=== PATIENT | female | born 1995 | race Hispanic/Latino ===

== ENCOUNTER 2021-03-15 18:06 | Emergency (ER) | payer OTHER ==
[~2021-03-15] VITALS: Ht 172.7 cm; Wt 83.9 kg
[2021-03-15 19:43] LABS: BASOPHILS % 0.5 % (0.0-1.0); EOSINOPHILS # (AUTO) 0.5 (0.0-0.4); EOSINOPHILS % 6.8 % (0.0-6.0); HEMATOCRIT 37.3 % (34.2-44.1); HEMOGLOBIN 12.2 g/dL (12.0-16.0); LYMPHOCYTES # (AUTO) 1.6 (1.0-3.2); LYMPHOCYTES % 20.3 % (18.0-39.1); MEAN CORPUSCULAR HEMOGLOBIN 30.9 pg (28-32); MEAN CORPUSCULAR HGB CONC 32.7 g/dL (31-35); MEAN CORPUSCULAR VOLUME 94.4 fL (81-99); MONOCYTES # (AUTO) 0.6 (0.2-0.8); MONOCYTES % 7.2 % (4.4-11.3); NEUTROPHILS # (AUTO) 5.1 (2.1-6.9); NEUTROPHILS % 64.8 % (38.7-80.0); PLATELET COUNT 419 x10e3/uL (140-360); RED BLOOD COUNT 3.95 x10e6/uL (3.6-5.1); RED CELL DISTRIBUTION WIDTH 12.6 % (11.7-14.4)
[2021-03-15 20:04] LABS: ALBUMIN/GLOBULIN RATIO 1.1 (0.8-2.0); ANION GAP 15.4 mmol/L (8-16); CALCIUM 9.5 mg/dL (8.4-10.2); POTASSIUM 5.4 mmol/L (3.5-5.1)
[2021-03-15] MEDS: DICYCLOMINE HCL 20 MG/2 ML VIAL IM ONE (20:21)
[2021-03-15] MEDS: ONDANSETRON HCL INJ 2MG/ML 2ML 2 MG/ML VIAL IV STA (20:21)
[2021-03-15 20:27] LABS: CREATININE, SERUM 0.71 mg/dL (0.57-1.11)
[2021-03-15 21:13] LABS: AMYLASE 48 U/L (25-125); LIPASE 14 U/L (8-78)
[2021-03-15 21:50] LABS: CLARITY,URINE CLEAR (CLEAR); COLOR,URINE YELLOW (YELLOW); KETONES,URINE NEGATIVE (NEGATIVE); LEUKOCYTE ESTERASE ,URINE NEGATIVE (NEGATIVE); NITRITE,URINE NEGATIVE (NEGATIVE); PROTEIN,URINE DIPSTICK NEGATIVE (NEGATIVE); URINE UROBILINOGEN 0.2 mg/dL (0.2 - 1)
[2021-03-15 22:06] LABS: EPITHELIAL CELLS,URINE FEW /LPF; WBC,URINE (MAN) 0-5 /HPF (0-5)
[2021-03-17] MEDS ORDERED: PANTOPRAZOLE SO20 MG PO (15:17)
[2021-03-17] MEDS ORDERED: DICYCLOMINE HCL20 MG PO (15:17)
[2021-03-17] MEDS ORDERED: ONDANSETRON ODT8 MG PO (15:17)
== END 2021-03-15 23:48 | disposition home or self-care (01) ==
LOC: ER 19:21
DX: K29.70 Gastritis, unspecified, without bleeding (principal)
CPT/HCPCS: 36415; 76705; 80053; 81001; 81025; 82150; 83690; 85025; 99283; C9113; J0500; J2405

== ENCOUNTER → 2021-03-19 | Outpatient (CLI) | payer OTHER, BC ==
[~2021-03-19] MED LIST: DICYCLOMINE HCL20 MG PO; ONDANSETRON ODT8 MG PO; PANTOPRAZOLE SO20 MG PO
== END ==
LOC: US 12:21
PROVIDERS: ATTEND Internal Medicine Gastroenterology
DX: R10.11 Right upper quadrant pain (principal)
CPT/HCPCS: 76705

== ENCOUNTER → 2021-03-20 | Day surgery (SDC) | payer OTHER, BC ==
[~2021-03-20] MED LIST changes: +ACETAMINOPHEN 1000 MG/100 ML 100 ML IV ONE
[2021-03-20 08:15] VITALS: BP 115/88
== END | disposition home or self-care (01) ==
LOC: OR 05:34
PROVIDERS: ATTEND Internal Medicine Gastroenterology
DX: K29.50 Unspecified chronic gastritis without bleeding (principal); K20.90 Esophagitis, unspecified without bleeding; K21.9 Gastro-esophageal reflux disease without esophagitis; K59.09 Other constipation; E66.9 Obesity, unspecified; Z01.812 Encounter for preprocedural laboratory examination; Z20.822 Contact with and (suspected) exposure to COVID-19; Z68.36 Body mass index [BMI] 36.0-36.9, adult
CPT/HCPCS: 43239; 81025; C9113; J0131; U0002